=== PATIENT | male | born 1950 | race Caucasian/White ===

== ENCOUNTER → 2016-09-28 | Outpatient (CLI) | payer MEDICARE ==
[2016-09-28 09:40] LABS: Blood Urea Nitrogen 14 mg/dL (9-20); Non-African American GFR(MDRD) >60 (>60 ml/min/1.73 sqM)
--- NOTE | 2016-09-28 11:21 | XR ---
EXAMINATION TYPE: XR IVP DATE OF EXAM: 09/28/2016 COMPARISON: NONE HISTORY: History of left ureteral uroepithelial carcinoma. Cryoablation. TECHNIQUE: Following intravenous administration of Omnipaque 300, multiple spot images are obtained. The preliminary film of the abdomen reveals no significant abnormality. No definite nephrolithiasis i s seen. Following intravenous administration of contrast material, sequential films of the abdomen were obtai maximino. There is prompt and symmetrical excretion of the contrast by both kidneys which demonstrate nor mal size and configuration. The collecting systems and visualized portions of the ureters reveal no abnormality. There is no mass or obstruction visualized. There is gradual accumulation of contrast material in the urinary bladder showing no gross abnormality. The previously seen filling defect within the distal left ureter is no longer evident. No filling def ects are appreciated at the site of prior cryotherapy. A nonobstructive short segment stricture is se en just proximal to the treated area measuring 4.5 mm in length. There is no evidence of obstructive uropathy/hydroureters or hydronephrosis proximal to this nonobstructive stricture. The post-voiding film shows minimal residual contrast in the collecting systems and urinary bladder. IMPRESSION: Nonobstructive short segment stricture just proximal to the site of prior therapy. No filling defect at the prior site of ureteral carcinoma to indicate residual tumor or recurrence.
== END ==
LOC: RADFLMAIN 09:06
PROVIDERS: ATTEND Urology
DX: C66.2 Malignant neoplasm of left ureter (principal); C67.9 Malignant neoplasm of bladder, unspecified
CPT/HCPCS: 82565; 84520; 74400; Q9967

== ENCOUNTER 2017-07-11 08:03 | Day surgery (SDC) | payer MEDICARE ==
[2017-07-06 12:42] VITALS: BMI 29.3
[~2017-07-11 08:03] MED LIST: LACTATED RINGERS 1,000 ML IV SCH
[2017-07-11 08:21] VITALS: RESP 18; TEMP 98
[2017-07-11] MEDS ORDERED: LIDOCAINE 1% 20 ML VIAL (10MG/ML) FOR IV START INTRADERMA ONE (08:21)
[2017-07-11] MEDS ORDERED: LACTATED RINGERS 1,000 ML IV ONE (08:21)
[2017-07-11] MEDS ORDERED: PROPOFOL 10 MG/ML 20 ML VIAL IV ONE (09:11)
--- NOTE | 2017-07-11 09:28 | P.PCN ---
Date of Procedure: 07/11/17 Procedure(s) Performed: BRIEF HISTORY: Patient is a 66-year-old pleasant, white male, scheduled for an elective colonoscopy as a part of screening for colon neoplasia. PROCEDURE PERFORMED: Colonoscopy. PREOPERATIVE DIAGNOSIS: Screening for colon cancer. IV sedation per Anesthesia. PROCEDURE: After informed consent was obtained, the patient, was brought into the endoscopy unit. IV sedation was administered by Anesthesia under continuous monitoring. Digital rectal examination was normal. Initially the Olympus CF- 160 flexible video colonoscope was then inserted in the rectum, gradually advanced into the cecum without any difficulty. Careful examination was performed as the scope was gradually being withdrawn. Ileocecal valve and the appendiceal orifice were visualized and appeared normal. Prep was excellent. Mucosa of the cecum, ascending colon, transverse colon, descending colon, sigmoid colon, and rectum appeared normal. Scattered sigmoidal reticulosis seen. Retroflexion was performed in the rectum and small internal hemorrhoids were seen. The patient tolerated the procedure well. IMPRESSION: Normal-appearing colon from rectum to cecum with no evidence of colon rectal neoplasia. Scattered sigmoid diverticulosis Small internal hemorrhoids RECOMMENDATIONS: Findings of this examination were discussed with the patient as well as his family. He was advised to have a repeat screening colonoscopy in 10 years.
[2017-07-11 10:06] VITALS: BP 132/81
[2017-07-11 10:12] VITALS: PULSE 46
== END 2017-07-11 10:20 | disposition home or self-care (01) ==
LOC: ORWHC2ENDO 08:03
PROVIDERS: ATTEND Internal Medicine Gastroenterology
DX: Z12.11 Encounter for screening for malignant neoplasm of colon (principal); K57.30 Diverticulosis of large intestine without perforation or abscess without bleeding; K64.8 Other hemorrhoids; E07.9 Disorder of thyroid, unspecified; N42.9 Disorder of prostate, unspecified; Z85.54 Personal history of malignant neoplasm of ureter; K21.9 Gastro-esophageal reflux disease without esophagitis; Z79.890 Hormone replacement therapy; Z88.8 Allergy status to other drugs, medicaments and biological substances
CPT/HCPCS: J2704; G0121

== ENCOUNTER → 2017-10-09 | Outpatient (CLI) | payer MEDICARE ==
--- NOTE | 2017-10-09 09:38 | US ---
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 History of uret er and bladder ca in 2014, no symptoms today, follow up exam TECHNIQUE: Multiple sonographic images of the kidneys and bladder are obtained. FINDINGS: EXAM MEASUREMENTS: Right Kidney: 11.7 x 4.6 x 6.3 cm Left Kidney: 11.6 x 5.2 x 6.2 cm Right Kidney: No hydronephrosis. Left Kidney: No hydronephrosis. Bladder: wnl Bilateral Jets seen: yes IMPRESSION: No hydronephrosis. No discrete mass by ultrasound.
== END | disposition home or self-care (01) ==
LOC: RADUSWWP 06:48
PROVIDERS: ATTEND Urology
DX: D49.4 Neoplasm of unspecified behavior of bladder (principal)
CPT/HCPCS: 76770

== ENCOUNTER → 2018-08-23 | Outpatient (CLI) | payer MEDICARE ==
--- NOTE | 2018-08-23 07:40 | US ---
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 EXAM MEASUREMENTS: Right Kidney: 11.0 x 4.7 x 5.4 cm Left Kidney: 11.4 x 5.1 x 5.4 cm Right Kidney: No hydronephrosis or masses seen Left Kidney: No hydronephrosis or masses seen Bladder: wnl Bilateral Jets seen: Yes Urinary bladder appears sonolucent. The posterior wall appears normal. No discrete abnormality is zenaida dent. Some diffuse wall thickening is not entirely excluded. Urinary bladder wall somewhat indistinct in thickness IMPRESSION: 1. Normal renal ultrasound. No hydronephrosis or hydroureter is noted. 2. Patient's known Urinary bladder abnormality not identified on this exam.
== END | disposition home or self-care (01) ==
LOC: RADUSWWP 07:00
PROVIDERS: ATTEND Urology
DX: D49.4 Neoplasm of unspecified behavior of bladder (principal)
CPT/HCPCS: 76770

== ENCOUNTER → 2019-08-12 | Outpatient (CLI) | payer MEDICARE ==
--- NOTE | 2019-08-12 12:31 | XR ---
EXAMINATION TYPE: XR lumbosacral spine min 4V DATE OF EXAM: 08/12/2019 CLINICAL HISTORY: pain COMPARISON: NONE TECHNIQUE: Frontal, lateral, and oblique images of the lumbar spine are obtained. FINDINGS: There are 5 lumbar type vertebral bodies identified. The lumbar spine shows satisfactory alignment without evidence of acute fracture or dislocation. Vertebral body heights are within normal limits. Moderate multilevel degenerative disc disease and spondylosis. Facet joint arthropathy. Th e overlying soft tissue appears unremarkable. IMPRESSION: No acute fracture or dislocation is seen in the lumbar spine.ICD 10 NO FRACTURE, INITIAL EVALUATION
== END | disposition home or self-care (01) ==
LOC: RADXRMAIN 11:58
PROVIDERS: ATTEND Internal Medicine Geriatric Medicine
DX: M54.5 Low back pain (principal)
CPT/HCPCS: 72110

== ENCOUNTER → 2019-09-09 | Outpatient (CLI) | payer MEDICARE ==
--- NOTE | 2019-09-09 08:12 | US ---
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 EXAM MEASUREMENTS: Right Kidney: 11.7 x 5.8 x 5.2 cm Left Kidney: 12.9 x 6.5 x 6.2 cm Post Void Residual Volume: 22.4 mL Right Kidney: No hydronephrosis or masses seen Left Kidney: No hydronephrosis or masses seen Bladder: wnl Bilateral Jets seen: Yes Normal Post Void Residual: Yes There is no evidence for hydronephrosis at this point in time. No nephrolithiasis is seen. No anjali s are identified. The urinary bladder is anechoic. Bilateral ureteral jets are seen. IMPRESSION: No distinct abnormality is appreciated at this time.
== END | disposition home or self-care (01) ==
LOC: RADUSWWP 06:52
PROVIDERS: ATTEND Urology
DX: D49.4 Neoplasm of unspecified behavior of bladder (principal)
CPT/HCPCS: 76770

== ENCOUNTER → 2020-06-09 | Outpatient (CLI) | payer MEDICARE ==
[2020-06-09 10:35] LABS: HCT 40.7 % (39.0-53.0); HGB 14.1 gm/dL (13.0-17.5); MCH 30.5 pg (25.0-35.0); MCHC 34.6 g/dL (31.0-37.0); MCV 88.3 fL (80.0-100.0); Mean Platelet Volume 7.1; Platelet Count 165 k/uL (150-450); RBC 4.61 m/uL (4.30-5.90); RDW 13.3 % (11.5-15.5)
== END | disposition home or self-care (01) ==
LOC: LABPAT 09:43
PROVIDERS: ATTEND Surgery
DX: Z01.818 Encounter for other preprocedural examination (principal)
CPT/HCPCS: 36415; 85027

== ENCOUNTER 2020-06-11 06:03 | Day surgery (SDC) | payer MEDICARE ==
[2020-06-08 11:36] VITALS: BMI 28.8
--- NOTE | 2020-06-10 18:04 | P.GSHP ---
History of Present Illness H&P Date: 06/10/20 Chief Complaint: right inguinal hernia 69-year-old male known to our service. He was last seen in the office in October. Patient has complaints of a bulge right groin for the last 2-3 years. Mild discomfort at times. Personal history of open left inguinal hernia repair in the past. No nausea or vomiting. 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 DX OF LEFT URETER CANCER 08/2014 History of Any Multi-Drug Resistant Organisms: None Reported Past Surgical History: Adenoidectomy, Hernia Repair, Tonsillectomy Additional Past Surgical History / Comment(s): URETEROSCOPE FOR LT URETERAL MO NT CHANGE AND ABLATION OF LT URETERAL TUMORS. CYSTOSCOPY 2013, ,2014 X2. ureter stent 08/12/14. COLONOSCOPY, EGD, Past Anesthesia/Blood Transfusion Reactions: No Reported Reaction Smoking Status: Former smoker - Past Family History Mother Family Medical History: No Reported History Medications and Allergies Home Medications Medication Instructions Recorded Confirmed Type Levothyroxine Sodium [Levoxyl] 125 mcg PO DAILY 06/08/20 06/08/20 History Allergies Allergy/AdvReac Type Severity Reaction Status Date / Time atorvastatin calcium AdvReac TURNS SKIN Verified 06/08/20 11:33 [From Lipitor] YELLOW ALONG WITH MUSCLE ACHES Surgical - Exam Physical exam: General: Well-developed, well-nourished HEENT: Normocephalic, sclerae nonicteric Abdomen: Nontender, nondistended, reducible right hernia Extremities: No edema Neuro: Alert and oriented Assessment and Plan (1) Right inguinal hernia Narrative/Plan: 69-year-old male with symptomatic right inguinal hernia. We'll proceed with laparoscopic da Chayo assisted repair right inguinal hernia with mesh, possible open, possible bilateral. Risks of bleeding, infection, recurrence, bladder and bowel injury, numbness, nerve injury, conversion to an open procedure were discussed with the patient. The patient understands and wishes to proceed. Status: Acute Code(s): K40.90 - UNIL INGUINAL HERNIA, W/O OBST OR GANGR, NOT SPCF RECUR SNOMED Code(s): 885398288
[~2020-06-11 06:03] MED LIST changes: +ACETAMINOPHEN TAB 500 MG TAB PO PRN; +DEXAMETHASONE SOD PHOSPHATE 4 MG/ML 1 ML VIAL IV ONE; +HEPARIN SODIUM,PORCINE/PF 5,000 UNIT/0.5 ML SYRINGE SQ PRN; +MIDAZOLAM 2 MG/2 ML VIAL IV PRN; +ONDANSETRON 4 MG/2 ML VIAL IVP ONE
[2020-06-11] MEDS ORDERED: HYDROmorphone 0.5 MG/0.5 ML SYRINGE IVP PRN (07:00)
[2020-06-11] MEDS ORDERED: MIDAZOLAM 2 MG/2 ML VIAL IVP ONE (07:14)
[2020-06-11] MEDS ORDERED: fentaNYL (PF) 50 MCG/ML 2 ML AMP IVP ONE (07:14)
--- NOTE | 2020-06-11 07:30 | P.ANPRN ---
Procedure Note - Anesthesia - Nerve Block Performed Bilateral Erector Spinae Single Time Out Performed: Yes ([id number]) Date of Procedure: 06/11/20 Procedure Start Time: 07:14 Procedure Stop Time: 07:24 Location of Patient: PreOp Indication: Acute Post-Operative Pain, Analgesia, Requested by Surgeon Specifically requested for management of pain by DrAlex: Forest Engel Sedation Type: Sedate with meaningful contact maintained Preparation: Sterile Prep Position: Prone Catheter: None Needle Types: Pajunk Needle Gauge: 20 Ultrasound used to visualize needle placement: Yes Ultrasound used to observe medication spread: Yes Injectate: Other (see comment) (0.25 % ropivacaine 15 mL each side (30 mL total)) Blood Aspirated: No Pain Paresthesia on Injection Noted: No Resistance on Injection: Normal Image Stored and Saved: Yes Events: Uneventful and Well Tolerated
[2020-06-11] MEDS ORDERED: fentaNYL (PF) 50 MCG/ML 2 ML AMP ONE (07:36)
[2020-06-11] MEDS ORDERED: ePHEDrine SULFATE/0.9% NACL/PF 50 MG/5 ML SYRINGE IV ONE (07:36)
[2020-06-11] MEDS ORDERED: GLYCOPYRROLATE 0.2 MG/ML 2 ML VIAL ONE (07:36)
[2020-06-11] MEDS ORDERED: KETOROLAC 15 MG/ML 1 ML VIAL ONE (07:36)
[2020-06-11] MEDS ORDERED: NEOSTIGMINE 1 MG/ML 10 ML VIAL ONE (07:36)
[2020-06-11] MEDS ORDERED: ROPIVACAINE 5 MG/ML 30 ML VIAL ONE (07:36)
[2020-06-11] MEDS ORDERED: ROCURONIUM 10 MG/ML (5 ML VIAL) IV ONE (07:36)
[2020-06-11] MEDS ORDERED: PROPOFOL 10 MG/ML 20 ML VIAL IV ONE (07:36)
[2020-06-11] MEDS ORDERED: MIDAZOLAM 2 MG/2 ML VIAL ONE (07:36)
[2020-06-11] MEDS ORDERED: LIDOCAINE 1% INJ 10MG/ML (20 ML MDV) ONE (07:36)
[2020-06-11] MEDS ORDERED: SODIUM CHLORIDE 0.9% (PF) 10 ML VIAL ONE (07:36)
[2020-06-11] MEDS ORDERED: BUPIVACAINE (PF) 0.5% 30 ML VIAL SQ ONE ×2 (08:07)
[2020-06-11] MEDS ORDERED: ACETAMINOPHEN TAB 325 MG TAB PO SCH (09:00)
[2020-06-11 09:03] VITALS: TEMP 97.1
--- NOTE | 2020-06-11 09:04 | P.OP ---
Date of Procedure: 06/11/20 Procedure(s) Performed: PREOPERATIVE DIAGNOSIS: Right inguinal hernia POSTOPERATIVE DIAGNOSIS: Same PROCEDURE: Laparoscopic repair 8 direct inguinal hernia with the da Chayo robot assistance with mesh SURGEON: Maren EBL: Minimal ANESTHESIA: General COMPLICATIONS: None OPERATIVE PROCEDURE: Patient was placed in the operating table in the supine position. The patient was placed under general anesthesia. The abdomen was prepped and draped in usual sterile fashion. A small curvilinear supraumbilical incision was made. The fascia was retracted anteriorly with [place] forceps. The Veress needle was inserted. The saline drop test was normal. Insufflation took place to 15 mmHg. An 8 mm trocar was placed into the peritoneal cavity. 2 additional 8 mm trochars were placed in the right upper quadrant and left upper quadrant under visualization. The robotic arms were then brought in and docked into place. The fenestrated bipolar was used in the left arm and the laparoscopic sarah beth was utilized in the right arm. A 30 8 mm scope was used in the up position. The peritoneal cavity was inspected. Patient had evidence of previous left inguinal hernia repair. An obvious right direct hernia was noted that was moderate in size. The peritoneum was incised in a horizontal fashion cephalad to the internal inguinal ring. Following that careful dissection of the preperitoneal space took place. This took place using both electrocautery, sharp dissection but primarily blunt dissection. Visualization of the pubic tubercle and Mundo's ligament took place medially. We were able to visualize the mesh from the previous open repair on the left-hand side. Full dissection took place laterally as well. The hernia sac was fully dissected. Once we had adequate space the extra-large 3-D max Bard mesh was advanced into the preperitoneal space and flattened out appropriately to cover all potential hernia sites. Given the size of the defect in the direct space I did suture the mesh medial to the defect to help prevent recurrence. This was done using a short running 20V lock suture. The peritoneal defect was then closed using a locking 2-0 VLok suture. The hernia sac was incorporated to the medial aspect of the peritoneal closure. The pneumoperitoneum was then evacuated. The skin of all 3 sites was closed using a 4-0 Monocryl stitch. Skin glue was then applied. DISPOSITION: Stable to recovery room
[2020-06-11] MEDS ORDERED: LACTATED RINGERS 1,000 ML IV ONE (09:06)
[2020-06-11] MEDS ORDERED: TAMSULOSIN 0.4 MG CAP.ER.24H PO ONE (10:07)
[2020-06-11] MEDS ORDERED: TAMSULOSIN 0.4 MG CAP.ER.24H PO STA (11:09)
[2020-06-11] MEDS ORDERED: IBUPROFEN 600 MG TAB PO SCH (12:00)
[2020-06-11 12:02] VITALS: BP 160/77; PULSE 60; RESP 18
== END 2020-06-11 12:40 | disposition home or self-care (01) ==
LOC: OR 06:03
PROVIDERS: ATTEND Surgery
DX: K40.90 Unilateral inguinal hernia, without obstruction or gangrene, not specified as recurrent (principal); E78.5 Hyperlipidemia, unspecified; E03.9 Hypothyroidism, unspecified; E78.00 Pure hypercholesterolemia, unspecified; M19.90 Unspecified osteoarthritis, unspecified site; Z87.891 Personal history of nicotine dependence; Z82.49 Family history of ischemic heart disease and other diseases of the circulatory system; Z83.3 Family history of diabetes mellitus; Z85.51 Personal history of malignant neoplasm of bladder; Z88.8 Allergy status to other drugs, medicaments and biological substances
CPT/HCPCS: 64999; 76942; 49650; J2250; J1100; J2710; J0690; J2405; J2001; J3010; J2795; J1885; J2704; J1644

== ENCOUNTER → 2020-10-01 | Outpatient (CLI) | payer MEDICARE ==
--- NOTE | 2020-10-01 13:23 | XR ---
EXAMINATION TYPE: XR foot complete RT DATE OF EXAM: 10/01/2020 CLINICAL HISTORY: Swelling and pain laterally for 2 to 3 days TECHNIQUE: Frontal, lateral, and oblique images of the right foot are obtained. COMPARISON: None FINDINGS: There is no acute fracture/dislocation evident in the right foot. Flexion and varus positi oning distal fourth and fifth toes. Faint curvilinear ossification near lateral base of the cuboid co uld reflect product of distal calcific tendinitis. Tiny inferior calcaneal spur. Calcification along the distal Achilles tendon just prior to calcaneal insertion. Overlying soft tissue is unremarkable. IMPRESSION: As above.
== END | disposition home or self-care (01) ==
LOC: RADXRMAIN 12:51
PROVIDERS: ATTEND Nurse Practitioner Family
DX: M77.31 Calcaneal spur, right foot (principal)

== ENCOUNTER → 2020-11-22 | Outpatient (CLI) | payer MEDICARE ==
[2020-11-22 16:46] LABS: Basophils # (A) 0.04 X 10*3/uL (0.00-0.10); Basophils % (A) 0.7 %; Eosinophils # (A) 0.18 X 10*3/uL (0.04-0.35); Eosinophils % (A) 3.2 %; HCT 40.4 % (39.6-50.0); HGB 13.2 g/dL (13.0-17.0); Lymphocytes # (A) 1.61 X 10*3/uL (0.90-5.00); Lymphocytes % (A) 28.5 %; MCH 29.6 pg (27.0-32.0); MCHC 32.7 g/dL (32.0-37.0); MCV 90.6 fL (80.0-97.0); Monocytes # (A) 0.57 X 10*3/uL (0.20-1.00); Monocytes % (A) 10.1 %; Neutrophils # (A) 3.23 X 10*3/uL (1.80-7.70); Neutrophils % (A) 57.1 %; Platelet Count 157 X 10*3/uL (140-440); RBC 4.46 X 10*6/uL (4.40-5.60); WBC 5.65 X 10*3/uL (4.50-10.00)
[2020-11-22 17:05] LABS: African American GFR (CKD) 74.6 (60.0-200.0); Albumin 4.3 g/dL (3.8-4.9); Albumin/Globulin Ratio 1.72 (1.60-3.17); Anion Gap 12.2 mmol/L (4.00-12.00); BUN/Creat Ratio 16.49 Ratio (12.00-20.00); Blood Urea Nitrogen 18.8 mg/dL (9.0-27.0); Calcium 9.4 mg/dL (8.7-10.3); Carbon Dioxide 22.4 mmol/L (21.6-31.8); Chol/HDL Ratio 4.63 Ratio; Globulin 2.5 g/dL (1.6-3.3); HDL Cholesterol 42.8 mg/dL (40.00-60.00); LDL Cholesterol,Calculated 135.5 mg/dL (0.0-131.0); Non-African American GFR(CKD) 64.3 (60.0-200.0); PSA Annual Screen 0.8 ng/mL (0.000-4.000); Potassium 4.6 mmol/L (3.5-5.5); T4, Free (Free Thyroxine) 1.59 ng/dL (0.800-1.800); Total Bilirubin 0.5 mg/dL (0.30-1.20); Total Protein 6.7 g/dL (6.2-8.2); Triglycerides 98.7 mg/dL (0.00-149.00); VLDL Calculation 19.74 mg/dL (5.00-40.00)
== END | disposition home or self-care (01) ==
LOC: LABWHC1 09:54
PROVIDERS: ATTEND Internal Medicine Geriatric Medicine
DX: Z00.00 Encounter for general adult medical examination without abnormal findings (principal); R73.9 Hyperglycemia, unspecified; E78.2 Mixed hyperlipidemia; N40.0 Benign prostatic hyperplasia without lower urinary tract symptoms; E03.9 Hypothyroidism, unspecified
CPT/HCPCS: 84439; 80061; 80053; 84443; 85025; 83036; 36415; G0103

== ENCOUNTER → 2021-08-29 | Outpatient (CLI) | payer MEDICARE ==
--- NOTE | 2021-08-29 08:02 | US ---
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 Hx of ureter cancer. EXAM MEASUREMENTS: Right Kidney: 11.8 x 5.8 x 5.4 cm Left Kidney: 12.4 x 5.4 x 6.4 cm Right Kidney: No hydronephrosis or masses seen. Left Kidney: No hydronephrosis or masses seen. Bladder: wnl, no mass visualized. Bilateral Jets seen: Yes IMPRESSION: No evidence of hydronephrosis or mass identified.
== END | disposition home or self-care (01) ==
LOC: RADUSWWP 07:16
PROVIDERS: ATTEND Urology
DX: C67.5 Malignant neoplasm of bladder neck (principal)
CPT/HCPCS: 76770

== ENCOUNTER → 2021-11-21 | Outpatient (CLI) | payer MEDICARE ==
--- NOTE | 2021-11-21 13:31 | XR ---
EXAMINATION TYPE: XR chest 2V DATE OF EXAM: 11/21/2021 1:15 PM COMPARISON: CTA chest abdomen pelvis 12/23/2013. TECHNIQUE: XR chest 2V Frontal and lateral views of the chest. CLINICAL INDICATION:Male, 70 years old with history of R059; FINDINGS: Lungs/Pleura: There is no evidence of pleural effusion, focal consolidation, or pneumothorax. Bilate ral calcified pleural plaques redemonstrated. Pulmonary vascularity: Unremarkable. Heart/mediastinum: Cardiomediastinal silhouette is unremarkable. Musculoskeletal: No acute osseous pathology. IMPRESSION: 1. No acute cardiopulmonary disease/process. 2. Bilateral calcified pleural plaques redemonstrated.
== END | disposition home or self-care (01) ==
LOC: RADXRMAIN 13:01
PROVIDERS: ATTEND Internal Medicine Geriatric Medicine
DX: J92.9 Pleural plaque without asbestos (principal)
CPT/HCPCS: 71046

== ENCOUNTER → 2022-02-01 | Outpatient (CLI) | payer MEDICARE ==
--- NOTE | 2022-02-01 11:10 | XR ---
EXAMINATION TYPE: XR chest 2V DATE OF EXAM: 02/01/2022 COMPARISON: 11/21/2021 HISTORY: Shortness of breath TECHNIQUE: Frontal and lateral views of the chest are obtained. FINDINGS: Scattered senescent parenchymal changes noted. Hyperinflation compatible with COPD. No evidence for infiltrate. No evidence for atelectasis. Calcified pleural plaques noted. Heart size is stable. Mediastinal structures are stable and grossly unremarkable. No evidence for hilar prominence. Degenerative changes dorsal spine. IMPRESSION: 1. No evidence for acute pulmonary disease.
== END | disposition home or self-care (01) ==
LOC: RADXRMAIN 10:11
PROVIDERS: ATTEND Internal Medicine Geriatric Medicine
DX: R05.9 Cough, unspecified (principal); R06.02 Shortness of breath
CPT/HCPCS: 71046

== ENCOUNTER → 2022-03-10 | Outpatient (CLI) | payer MEDICARE ==
--- NOTE | 2022-03-10 13:51 | XR ---
EXAMINATION TYPE: XR chest 2V DATE OF EXAM: 03/10/2022 COMPARISON: 02/01/2022 HISTORY: Upper respiratory symptoms x6 weeks. One through several rounds of antibiotics but symptoms keep recurring TECHNIQUE: Frontal and lateral views of the chest are obtained. FINDINGS: The heart is not enlarged and there is no pulmonary vascular congestion. The lungs are bita ar and there are no pleural effusions. No pneumothorax. Densely calcified bilateral pleural plaques. No acute osseous abnormality. IMPRESSION: No acute cardiopulmonary process.
== END | disposition home or self-care (01) ==
LOC: RADXRMAIN 13:30
PROVIDERS: ATTEND Nurse Practitioner Family
DX: J06.9 Acute upper respiratory infection, unspecified (principal)
CPT/HCPCS: 71046

== ENCOUNTER → 2022-07-12 | Outpatient (CLI) | payer MEDICARE ==
--- NOTE | 2022-07-12 18:19 | XR ---
EXAMINATION TYPE: XR shoulder complete 3 views LT DATE OF EXAM: 07/12/2022 Comparison: None Clinical History: 71-year-old male M25.512 Findings: Moderate degenerative change AC joint. Subacromial space is preserved. There is at least moderate deg enerative change at the glenohumeral joint with joint space narrowing and bulky spurring. There is a 1.7 cm calcific/ossific focus at the greater tuberosity. 1.7 cm loose body in the subcoracoid recess. No acute fracture or dislocation. Impression: 1. At least moderate underlying glenohumeral joint OA. A 1.7 cm loose body in the subcoracoid recess. 2. Additional 1.7 cm calcific/ossific focus adjacent to the greater tuberosity. Findings may be seen in setting of calcific tendinitis.
== END | disposition home or self-care (01) ==
LOC: RADXRMAIN 12:34
PROVIDERS: ATTEND Internal Medicine Geriatric Medicine
DX: M19.012 Primary osteoarthritis, left shoulder (principal)

== ENCOUNTER → 2023-01-17 | Outpatient (CLI) | payer MEDICARE ==
--- NOTE | 2023-01-17 07:38 | CT ---
EXAMINATION TYPE: CT chest wo con DATE OF EXAM: 01/17/2023 COMPARISON: Chest x-ray March 10, 2022 HISTORY: Interstitial pulmonary disease. Pt states he was sick one year ago resulting in chronic coug h/wheezing. CT DLP: 1125.50 mGycm. Automated Exposure Control for Dose Reduction was Utilized. TECHNIQUE: CT scan of the thorax is performed without IV contrast. High-resolution protocol with 1 m m sequences obtained at 10 mm intervals in supine and prone technique. FINDINGS: LUNGS: Calcified pleural plaques bilaterally are present. Mild underlying emphysematous change. No si gnificant peripheral reticulation or fibrotic change. No bronchiectasis. No honeycombing. No pleural effusion or pneumothorax seen bilaterally MEDIASTINUM: Lack of IV contrast in technique are noted to limit evaluation for mediastinal and espec ially hilar adenopathy. There are no definitive greater than 1 cm mediastinal lymph nodes. Heart size upper limits of normal. No pericardial effusion is seen. At least moderate coronary artery calcifica tion is present. OTHER: No additional significant abnormality is seen. IMPRESSION: Calcified pleural plaques bilaterally consistent with history of prior asbestos exposure. No significant pulmonary fibrotic change.
== END | disposition home or self-care (01) ==
LOC: RADCTMAIN 06:11
PROVIDERS: ATTEND Internal Medicine Critical Care Medicine
DX: J84.9 Interstitial pulmonary disease, unspecified (principal); J92.9 Pleural plaque without asbestos
CPT/HCPCS: 71250

== ENCOUNTER → 2024-01-09 | Outpatient (CLI) | payer MEDICARE ==
[2024-01-09 10:26] LABS: Basophils # (A) 0.05 X 10*3/uL (0.00-0.10); Eosinophils # (A) 0.12 X 10*3/uL (0.04-0.35); Eosinophils % (A) 2.5 %; HCT 42.7 % (39.6-50.0); HGB 14.1 g/dL (13.0-17.0); Lymphocytes # (A) 1.35 X 10*3/uL (0.90-5.00); Lymphocytes % (A) 28.2 %; MCH 29.5 pg (27.0-32.0); MCV 89.3 FL (80.0-97.0); Monocytes # (A) 0.54 X 10*3/uL (0.20-1.00); Monocytes % (A) 11.3 %; NRBC Per 100 WBC 0 X 10*3/uL (0.00-0.01); Neutrophils # (A) 2.69 X 10*3/uL (1.80-7.70); Neutrophils % (A) 56.4 %; Platelet Count 146 X 10*3/uL (140-440); RBC 4.78 X 10*6/uL (4.40-5.60); RDW 13.6 % (11.5-14.5); WBC 4.78 X 10*3/uL (4.50-10.00)
[2024-01-09 10:53] LABS: Chol/HDL Ratio 3.33 Ratio; Creatine Kinase 166 U/L (35-257); LDL Cholesterol,Calculated 101.6 mg/dL (0.0-131.0); VLDL Calculation 18.02 mg/dL (5.00-40.00)
[2024-01-09 10:54] LABS: ALT 23 U/L (10-49); AST 27 U/L (14-35); Albumin 4.3 g/dL (3.8-4.9); Albumin/Globulin Ratio 1.87 Ratio (1.60-3.17); Alkaline Phosphatase 51 U/L (41-126); BUN/Creat Ratio 15.67 Ratio (12.00-20.00); Blood Urea Nitrogen 18.8 mg/dL (9.0-27.0); Calcium 9.7 mg/dL (8.7-10.3); Carbon Dioxide 25.7 mmol/L (21.6-31.8); Chloride 106 mmol/L (96-109); Globulin 2.3 g/dL (1.6-3.3); Glucose 98 mg/dL (70-110); Potassium 5.3 mmol/L (3.5-5.5); Prostate Specific Antigen 1.59 ng/mL (0.000-6.500); Sodium 142 mmol/L (135-145); T4, Free (Free Thyroxine) 1.62 ng/dL (0.80-1.80); Total Bilirubin 0.5 mg/dL (0.3-1.2); Total Protein 6.6 g/dL (6.2-8.2)
== END | disposition home or self-care (01) ==
LOC: LABWHC1 07:20
PROVIDERS: ATTEND Internal Medicine Geriatric Medicine
DX: Z00.00 Encounter for general adult medical examination without abnormal findings (principal); N40.0 Benign prostatic hyperplasia without lower urinary tract symptoms; E78.2 Mixed hyperlipidemia; E03.9 Hypothyroidism, unspecified; R73.9 Hyperglycemia, unspecified
CPT/HCPCS: 36415; 80053; 80061; 82550; 83036; 84153; 84439; 84443; 85025